=== PATIENT | female | born 1935 | race Caucasian/White ===

== ENCOUNTER 2019-05-13 14:18 | Inpatient (IN) | payer OTHER, MEDICAID ==
[~2019-05-13] VITALS: Ht 147.3 cm; Wt 49.0 kg
[~2019-05-13 14:18] MED LIST: FERL PO; LOT20 PO; METP PO; PRI20 PO; VIC PO
[2019-05-13 14:21] VITALS: Ht 147.3 cm; Wt 49.0 kg
--- NOTE | 2019-05-13 14:44 | NUR ---
PT BIBA FROM HOME S/P FALLING TWICE. PT WAS OUTSIDE AND FELL ON LEFT SIDE, GOT UP AND FELL ON RIGHT SIDE. PT DENIES HITTING HEAD OR HAVING LOC. PT STATES SHE CRAWLED INSIDE THE HOUSE AND CALLED FAMILY MEMBERS WHO THEN CALLED 911. PT CO L ELBOW PAIN AND R KNEE PAIN. PT HAS NOTED " MOSQUITO BITES TO L ELBOW, NO DEFORMITY NOTED. PT HAS SWELLING NOTED TOR KNEE AND INCREASED PAINWITH TOUCH. PT IS AWAKE AND ALERT. BREATHING EVEN AND UNLABORED. PT ABLE TO OROZCO. PT RECLINING ON GURNEY WITH NAD. WILL CONTINUE TO MONITOR
--- NOTE | 2019-05-13 14:45 | NUR ---
RECEIVED REPORT FROM TERRY. PT LYING WITH HOB UP 30 DEG. COVERED WITH BLANKET. PT AAOX4; BREATHING E/U. CALL LIGHT IS IN REACH
--- NOTE | 2019-05-13 15:00 | NUR ---
XR AT BEDSIDE
[2019-05-13 15:35] LABS: BASOPHIL % 0.1 % (0-2); PLATELET COUNT 341 x10^3mcL (130-400); RED CELL DISTRIBUTION WIDTH 13.8 % (11.5-14.5)
--- NOTE | 2019-05-13 15:45 | NUR ---
PT LYING IN COMFORTABLE POSITION WITH RLE ELEVATED SLIGHTLY. GRANDDAUGHTER AT BEDSIDE.
[2019-05-13 15:46] LABS: CALCIUM 9.2 mg/dL (8.5-10.1); CARBON DIOXIDE 23.7 mmol/L (21-32); CHLORIDE SERUM 104 mmol/L (98-107); CREATININE SERUM 0.9 mg/dL (0.6-1.0); GLUCOSE SERUM 104 mg/dL (74-106); POTASSIUM SERUM 3.9 mmol/L (3.5-5.1); SODIUM SERUM 143 mmol/L (136-145)
[2019-05-13 15:49] LABS: ALBUMIN 3.5 g/dL (3.4-5.0); ALKALINE PHOSPHATASE 73 U/L (46-116); ALT/SGPT 21 U/L (14-59); AST/SGOT 16 U/L (15-37); BILIRUBIN TOTAL 0.5 mg/dL (0.20-1.00); TOTAL PROTEIN, SERUM 6.9 g/dL (6.4-8.2)
--- NOTE | 2019-05-13 16:30 | NUR ---
PT SLEEPING. BREATHING E/U
[2019-05-13] MEDS ORDERED: CYMBALTA30 M1 PO (17:45)
--- NOTE | 2019-05-13 17:46 | NUR ---
PT REPORTS FEELING COMFORTABLE
--- NOTE | 2019-05-13 17:47 | NUR ---
CALLED [phone] FOR REPORT, NO ANS AT THIS TIME
--- NOTE | 2019-05-13 18:23 | NUR ---
REPORT GIVEN TO ANTONIO ESCOBAR
--- NOTE | 2019-05-13 18:28 | NUR ---
PT RETURND VIA GURNEY FROM CT
--- NOTE | 2019-05-13 18:35 | NUR ---
RECEIVED PT VIA GUERNEY FROM E/D, ACCOMPANIED BY TRANSPORTER AND PT'S GRANDDAUGHTER. PT A/A/O X 4, CALM, COOPERATIVE; [place]. DENIES CHEST PAIN OR DISCOMFORT AT THIS TIME. MARGAUX RADIAL PULSES AND RIGHT PEDAL PULSES PRESENT, LEFT PEDAL PULSE WEAK, NO EDEMA, CAP REFILL < 3 SECS, SCD BY BEDSIDE. NO ACUTE RESPIRATORY DISTRESS NOTED. GENERALIZED WEAKNESS W/ LEFT-SIDED DEFICITS, R TIBIAL TUBEROSITY FX W/ SPLINT TO RLE, FALL RISK PROTOCOL IN PLACE. LALM FOR SKIN MANAGEMENT, NOTED MOSQUITO BITES TO LEFT ELBOW. IV SITE RH 22G, CDI. ORIENTED PT AND GRANDDAUGHTER TO ROOM, BED CONTROLS, CALL LIGHT SYSTEM. SIDE RAILS UP X 2, BED IN LOW POSITION. WILL ENDORSE TO LUZ ALVAREZ.
--- NOTE | 2019-05-13 18:59 | NUR ---
RECEIVED PATIENT IN ER WITH A TIBIAL FRATURE TO THE RIGHT LEG. IMMOBILIZER IN PLACE AND THE PULSES NOTED PALPABLE BUT PER RN AT BEDSIDE IS WEAKER TO THE LEFT THAN THE RIGHT. PATIENT IS TALKATIVE BUT FORGETFUL. GRANDDAUGHTERS AT BEDSIDE AND SUPPORTIVE WITH CARE AND FILLING IN THE GAPS OF HER MEMORY. WILL ENDORSE TO THE NEXT SHIFT.
[2019-05-13 19:20] VITALS: BP 165/69
--- NOTE | 2019-05-13 19:25 | NUR ---
RECEIVED PT RESTING IN BED, SUPPORTIVE FAMILY AT BEDSIDE. AOX4, DENIES CHOW/DIZZINESS. PT FORGETFUL AT TIMES, [place] BILAT. MEDSURG PT, DENIES CP. PT S/P MECHANICAL FALL AT HOME, PT RLE IN IMMOBILIZER.RT LE XRAY SHOWING AVULSION FX OF TIBIAL TUBEROSITY. DR. LINTON CONSULTED. UPON ASSESSMENT OF SKIN, RLE NONPITTING EDEMA, LARGE LUMP BELOW KNEE CAP WITH THE APPEARANCE SIMILAR TO HER ACTUAL KNEE. PT WITH SMALL, ROUND SKIN TEAR. FACE BURLER. DENIES PAIN. PT REPORTS COMFORT WITH THE IMMOBILIZER SNUG FIT. PULSES PALPABLE BLE, SLIGHTLY WEAKER PULSE ON LLE. DENIES PAIN AT THIS TIME. PT DENIES SOB, ON RA, DENIES ABD PAIN. INFORMED PT WE NEED URINE SPECIMEN, WILL ATTEMPT WITH BEDPAN. GENERALIZED WEAKNESS, ON LALM, SKIN INTACT. IV SITE TO THE FT HAND, NS @ 50ML/HR. NO REDNESS, SWELLING OR PAIN NOTED. ALL COMFORT AND SAFETY MEASURES PROVIDED FOR, CALL LIGHT WITHIN REACH, BED IN LOWEST POSITION, WILL CONTINUE TO MONITOR.
--- NOTE | 2019-05-13 19:52 | NUR ---
GAVE REPORT TO ON COMING STAFF. PATIENT WITH GRANDDAUGHTER AT BEDSIDE AND HAVING CAROTID US AT THIS TIME.
[2019-05-13 22:19] VITALS: BP 159/66
--- NOTE | 2019-05-13 22:30 | NUR ---
RECHECKED PT BP= 145/63, HR 65, INFORMED RESIDENT LUX D/T PT ONLY HAS HYDRALAZINE AVAILABLE, PER RESIDENT LUX, THIS BP IS ACCEPTABLE AT THIS TIME. PT DENIES CHOW/DIZZINESS/LIGHTHEADEDNESS. PT AGREEABLE WITH PLAN OF CARE AT THIS TIME, DENIES PAIN IN AFFECT LE. IMMOBILIZER REMAINS IN PLACE. ALL COMFORT AND SAFETY MEASURES PROVIDED FOR, CALL LIGHT WITHIN REACH, BED IN LOWEST POSITION, WILL CONTINUE TO MONITOR.
[2019-05-13 22:45] VITALS: BP 145/63
--- NOTE | 2019-05-14 05:00 | NUR ---
PT RESTED IN INTERVALS DURING SHIFT, NO ACUTE CHANGES OCCURRING OVERNIGHT. PT BARBARA BARAHONA COOPERATIVE WITH PLAN OF CARE, PT REPORTS PAIN UNDER CONTROL DURING SHIFT. IV SITE REMAINS PATENT, NO REDNESS, SWELLING OR PAIN NOTED. CALL LIGHT WITHIN REACH, BED IN LOWEST POSITION, WILL CONTINUE TO MONITOR.
[2019-05-14 05:15] VITALS: BP 136/52
[2019-05-14 06:19] LABS: BASOPHIL % 0.4 % (0-2); PLATELET COUNT 299 x10^3mcL (130-400); RED CELL DISTRIBUTION WIDTH 13.9 % (11.5-14.5)
--- NOTE | 2019-05-14 06:36 | NUR ---
SPOKE TO PT DAUGHTER (RICARDO CATALAN: [phone]) AND UPDATED HER ON PLAN FOR SURGERY (RT ORIF WITH CANNULATED SCREWS AT TIBIA), PT WAS BRIEF BY DR. ROYER KELLEY TO SIGN CONSENT FORMS. PER DAUGHTER, PT IS NOT TO SIGN PAPERWORK UNTIL ANOTHER FAMILY MEMBER IS AT BEDSIDE TO ENSURE PT SAFETY. PER PT DAUGHTER, WILL BE IN TO SEE PATIENT AT 8-8:30AM TO BE PRESENT DURING CONSULTATION. WILL ENDORSE TO DAYSHIFT.
[2019-05-14 07:06] LABS: CALCIUM 8.7 mg/dL (8.5-10.1); CARBON DIOXIDE 24.1 mmol/L (21-32); CHLORIDE SERUM 111 mmol/L (98-107); CREATININE SERUM 1.2 mg/dL (0.6-1.0); GLUCOSE SERUM 92 mg/dL (74-106); PHOSPHOROUS 3.6 mg/dL (2.5-4.9); POTASSIUM SERUM 4.2 mmol/L (3.5-5.1); SODIUM SERUM 144 mmol/L (136-145)
--- NOTE | 2019-05-14 07:30 | NUR ---
RECEIVED PT FROM OFFICE ASSISTANT. PT AWAKE, ALERT A/OX4. PT ON ROOM AIR WITH NO RESP DISTRESS NOTED. PT DENIES HEADACHE, CHEST PAIN OR ANY PAIN AT THIS TIME. IV ACCESS RH 22G SALINE LOCKED. PERIPHERAL PULSES PALPABLE. NON PITTING EDEMA TO RIGHT KNEE. ACTIVE BS NOTED. NO ISSUES WITH ELIMINATION AT THIS TIME. PT NOTED TO HAVE GENERALIZED WEAKNESS. PT HAS FRACTURE TO RIGHT KNEE WITH NO PAIN NOTED. PT HAS BRACE TO KNEE. SAFETY MEASURES IN PLACE, BED LOW AND LOCKED. CALL LIGHT WITHIN REACH.
[2019-05-14 09:39] VITALS: BP 147/56
--- NOTE | 2019-05-14 10:30 | NUR ---
PT GRANDDAUGHTER AT BEDSIDE. CONSENT SIGNED. PT RIGHT LEG MARKED FOR SURGERY. PT WITH NO ACUTE DISTRESS OR DISCOMFORT AT THIS TIME. CHG WIPES BATH GIVEN.
--- NOTE | 2019-05-14 11:37 | NUR ---
PT TAKEN TO OR BY BED. NO ACUTE DISTRESS NOTED AT THIS TIME.
--- NOTE | 2019-05-14 14:35 | NUR ---
PT BACK FROM SURGERY. AWAKE, ALERT. VSS BP HIGH 172/57 WILL MEDICATE PRN. PT NOTED TO HAVE NAUSEA AND VOMITING. WILL MEDICATE.
--- NOTE | 2019-05-14 14:57 | NUR ---
ZOFRAN ADMINISTERED ORDERED PRN (SEE EMAR). HYDRALAZINE ADMINISTERED ORDERED PRN FOR VOMITING (SEE EMAR) WILL CONT TO MONITOR.
[2019-05-14 15:18] VITALS: BP 125/62
--- NOTE | 2019-05-14 15:25 | NUR ---
PHYSICAL THERAPY NOTE TO BE SEEN FOR PHYSICAL THERAPY EVAL TOMORROW. DR LINTON INDICATED SERVICE DATE FOR 05/15/19
[2019-05-14 15:43] VITALS: BP 143/61
[2019-05-14 17:41] VITALS: BP 141/64
--- NOTE | 2019-05-14 18:52 | NUR ---
PT STABLE AT THIS TIME. PT DENIES ANY PAIN. FAMILY AT BEDSIDE. ALL NEEDS MET THROUGHOUT SHIFT. WILL CONTINUE TO MONITOR AND ENDORSE CARE TO SHELL MACHINE OPERATOR.
[2019-05-14 19:50] VITALS: BP 131/54; BP 151/63
--- NOTE | 2019-05-14 20:02 | NUR ---
PATIENT RECEIVED AWAKE, ALERT, ORIENTED X4 IN BED. FAMILY MEMBER AT THE BEDSIDE. RESPIRATION EVEN AND UNLABORED, ON ROOM AIR. ONGOING 0.9% NS AT 50 CC/HR INFUSING WELL AT THE RIGHT HAND. VERBALIZED HER PAIN IS COMING BACK. S/P RIGHT TIBIA ORIF TODAY. RIGHT KNEE IMMOBILIZER IN PLACED. VOIDING FREELY, USES BEDPAN. SURGICAL INCISION TO RIGHT KNEE COVERED WITH DRESSING, MOSQUITO BITES TO LEFT ELBOW. HARD OF HEARING ON RIGHT EAR, BLURRY VISION ON RIGHT EYE. WILL CONTINUE TO MONITOR.
--- NOTE | 2019-05-14 21:03 | NUR ---
PATIENT COMPLAINED OF RIGHT KNEE PAIN, PS 8/10. MEDICATED WITH NORCO 7.5/325 MG PO ORDERED. WILL CONTINUE TO MONITOR.
[2019-05-15] VITALS (7 sets, daily range): BP systolic 121–168; BP diastolic 49–69
[2019-05-15 06:41] LABS: BASOPHIL % 0.4 % (0-2); PLATELET COUNT 291 x10^3mcL (130-400); RED CELL DISTRIBUTION WIDTH 13.6 % (11.5-14.5)
--- NOTE | 2019-05-15 06:47 | NUR ---
PATIENT RESTING IN BED, RESPIRATION EVEN AND UNLABORED. COMPLAINED OF RIGHT KNEE PAIN, 5/10. MEDICATED WITH NORCO 7.5/325 MG PO ORDERED. RIGHT IMMOBILIZER IN PLACED. IV SITE NO SIGN OF INFILTRATION. ASSISTED WITH NEEDS. SAFETY OBSERVED. PLACED CALL LIGHT WITHIN REACH AT ALL TIMES.
[2019-05-15 07:09] LABS: CALCIUM 8.3 mg/dL (8.5-10.1); CARBON DIOXIDE 23.7 mmol/L (21-32); CHLORIDE SERUM 108 mmol/L (98-107); CREATININE SERUM 1.1 mg/dL (0.6-1.0); GLUCOSE SERUM 98 mg/dL (74-106); MAGNESIUM 1.9 mg/dL (1.8-2.4); PHOSPHOROUS 3.1 mg/dL (2.5-4.9); POTASSIUM SERUM 4.3 mmol/L (3.5-5.1); SODIUM SERUM 141 mmol/L (136-145)
--- NOTE | 2019-05-15 07:30 | NUR ---
RECEIVED PT FROM CLINICAL STAFF EDUCATOR RN. Devonte/AMIE. MED SURG. RESPIRATIONS EQUAL AND UNLABORED ON RA. DENIES SOB. KNEE IMMOBILIZER IN PLACE TO RIGHT KNEE. NO REDNESS OR SWELLING NOTED. PT DENIES ANY PRESSURE TO RIGHT KNEE. PT DENIES ANY PAIN SINCE RECEIVING PAIN MEDICATION THIS AM. IV PATENT AND INFUSING. NO REDNESS OR SWELLING NOTED. PT SAT UP TO EAT BREAKFAST. WILL CONTINUE TO MONITOR. CALL LIGHT IN REACH. BED IN LOWEST POSITION.
--- NOTE | 2019-05-15 08:56 | NUR ---
PT SITITNG UP IN BED. NO ACUTE RESP DISTRESS NOTED ON RA. PT C/O FEELING DIZZY AND NAUSEATED. PT STATES "WHEN I TRIED TO EAT BREAKFAST THIS MORNING. I STARTED TO FEEL NAUSEATED AND DIZZY" PT STATES "THIS SOMETIMES HAPPENS WHEN MY BLOOD PRESSURE IS HIGH. BP CHECKED WAS 167/58. GIVEN PO MEDS. TOLERATED WELL. PT GIVEN ZOFRAN FOR NAUSEA. FLORENCIA WAYBILL CLERK AT BEDSIDE. FAMILY IS AGREEABLE TO SNF FOR PHYSICAL THERAPY. WILL CONTINUE TO MONITOR. CALL LIGHT IN REACH. BED IN LOWEST POSITTION.
--- NOTE | 2019-05-15 09:49 | NUR ---
SPOKE WITH REGINA PHYSICAL THERAPIST. PER REGINA PT WAS POSITIONED SITTING IN CHAIR. REGINA STATES CALLED PHYSICAL THERAPY WHEN PT IS READY TO MOVE BACK TO BED.
--- NOTE | 2019-05-15 12:16 | NUR ---
PT C/O DIZZINESS. PT IN BED RESTING. NO ACUTE RESP DISTRESS NOTED ON RA. BLOOD PRESSURE RECHECKED WAS 173/62 IN RIGHT ARM AND 168/69 IN LEFT ARM. PT HAS HYDRALAZINE IVP PRN. PER PHARMACY PT NEEDS TO BE ON TELEMETRY IN ORDER FOR THIS MEDICATION TO BE GIVEN. CALLED [employer] NEWS VIDEOGRAPHER. PER [employer] VIDEOGRAPHER WILL PLACE PT ON TELE. WILL CONTINUE TO MONITOR. CALL LIGHT IN REACH. BED IN LOWEST POSITION.
--- NOTE | 2019-05-15 12:36 | NUR ---
P.T. NOTES UNABLE TO SEE PATIENT FOR SECOND P.T. TREAT DUE TO C/O DIZZINESS AND NAUSEA, ALSO PATIENT HAS BEEN HAVING HIGH BP PER NURSING.
--- NOTE | 2019-05-15 13:02 | NUR ---
PT SITTING UP IN BED. NO ACUTE RESP DISTRESS NOTED ON RA. TELE# 8 PLACED ON PT. PT GIVEN HYDRALAZINE IVP FOR ELEVATED BP. PT TOLERATED WELL. GIVEN PO MEDS. TOLERATED WELL. PT USED BEDPAN. REPOSITIONED LAYING IN BED. WILL CONTINUE TO MONITOR. CALL LIGHT IN REACH. BED IN LOWEST POSITION.
--- NOTE | 2019-05-15 13:48 | NUR ---
PT SITTING UP IN BED SLEEPING. NO ACUTE RESP DISTRESS NOTED ON RA. PT DENIES ANY SOB. BP RECHECKED AFTER HYDRALAZINE WAS GIVEN WAS 141/58 MAP 68. PT DENIES ANY DIZZINESS OR NAUSEA AT THIS TIME. PT C/O CHILLS ORAL TEMP WAS CHECKED WAS 98.2. PT STATES "I WANT TO TRY TO EAT LATER. I JUST WANT TO REST RIGHT NOW" WILL CONTINUE TO MONITOR. CALL LIGHT IN REACH. BED IN LOWEST POSITION.
--- NOTE | 2019-05-15 15:10 | NUR ---
PT IN BED RESTING. NO ACUTE RESP DISTRESS NOTED ON RA. PT DENIES ANY DIZZINESS OR NAUSEA AT THIS TIME. PT STATES "I HAD SOME JELLO AND I FELT OKAY BUT I WANT TO WAIT A LITTLE BIT BEFORE EATING ANYMORE" PT DENIES ANY PAIN TO RT KNEE. RT KNEE IMMOBILIZER IN PLACE. SPOKE WITH DAUGHTER DIEGO, GIVEN UPDATES ON PT. WILL CONTINUE TO MONITOR. CALL LIGHT IN REACH. BED IN LOWEST POSITION.
--- NOTE | 2019-05-15 16:03 | NUR ---
PT SITTING UP IN BED. PT STATES SHE FEELS NUMBNESS TO RLE. PT STATES HER IMMOBILIZER FEELS TIGHT. READJUSTED KNEE IMMOBILIZER. PT STATES IT FEELS BETTER. SENSATION TO BLE EQUAL, PT DENIES ANY PAIN AT THIS TIME. WILL CONTINUE TO MONITOR. CALL LIGHT IN REACH. BED IN LOWEST POSITION.
--- NOTE | 2019-05-15 17:49 | NUR ---
PT SITTING UP IN BED. NO ACUTE RESP DISTRESS NOTED ON RA. PT REPOSITIONED WITH HOB ELEVATED TO EAT DINNER. PT EATING AND TOLERATING WELL. PT DENIES ANY NAUSEA OR ANY DIZZINESS. PT STATES "I DON'T HAVE ANY PAIN TO MY KNEE. SOMETIMES IT THROBS BUT ITS TOLERABLE." GIVEN PO MEDS. TOLERATES WELL. IV ANTIBIOTICS PATENT AND INFUSING. NO REDNESS OR SWELLING NOTED. WILL CONTINUE TO MONITOR. CALL LIGHT IN REACH. BED IN LOWEST POSITION.
--- NOTE | 2019-05-15 20:16 | NUR ---
PATIENT RECEIVED IN BED VIA BEDSIDE HANDSOFF WITH OUT GOING NURSE RAVI-LUZ, PATIENT CONVERSING WITH FAMILY MEMBER SEEMS IN GOOD SPIIRTS. NO NOTED DISTRESS NOR VERBALIZED CCONCERNS. AAOX3, FORGTEFUL AT TIMES, SPEECH CLEAR, [place] ON BOTH EARS NO VISIBLE HEARING AID NOTED.BREATHING EVEN AND UNLABORED BS CLEAR, DENIED SOB, FOUND ON ROOM AIR SAT 95-98%. DENIED CHEST PAINS, HR=76BPM, RHYTHM REGULAR, SR.NEW IV SITE INSERTED BY RESOURCE NURSE RAJIV TO RT AC SITE IS INTACT AND PATENT, TAPED SECURED. S/P RT PROXIMAL TIBIA ORIF, KNEE IMMOBILIZER IN USE, ABLE TO WIGGLE TOES, DENIED N/T SENSATION, BRISK CAP REFILL, DULL BEARABLE SURGICAL PAIN STATED BY PATIENT , RATED AT 3/10, PATIENT INFORMED BAOUT PAIN MANAGEMENT.GENERALIZED WEAKNESS,NEED ASSIST WITH ADL'S AND TURNING, NEEDS ANTICIPATED, CALL LIGHT PLACED IN REACH. AIR MATTRESS.VOIDING PER BEDPAN, DENIED PAIN UPON URINATION. SAFETY/FALL PRECAUTIONS MAINTAINED.INFORMED PATIENT AND FAMILY ABOUT POC THIS SHIFT. WILL CONTINUE TO MONITOR.
--- NOTE | 2019-05-15 21:11 | NUR ---
SCHEDULED MEDS ADMINISTERED, PATIENT INFORMED PRIOR OF EACH MEDS ACTIONS AND PURPOSES. ALL QUESTIONS ANSWERED. PLACED IN A SEMI FOWLERS POSTION DURING ADMINISTRATION.
--- NOTE | 2019-05-15 21:57 | NUR ---
PAIN RELIEF, RATED AT 2/10, COMFORTABLE THIS TIME, TURNED TO HER RT SIDE.
--- NOTE | 2019-05-16 00:03 | NUR ---
ROUNDS MADE PATIENT SLEEPING, COMFORTABLY AND QUIETLY THIS TIME, AWAKEN, PATIENT INFORMED ABOUT BEING TURNED THIS TIME TO HER LEFT SIDE. OFFERED NO COMPLAINT, STATES RLE PAIN IS AT 2 DULL AND BEARABLE. WILL CONTINUE TO MONITOR. SAFETY/FALL PRECAUTIONS MAINTAINED.
--- NOTE | 2019-05-16 03:00 | NUR ---
TURNED TO HER LEFT SIDE THIS TIME, NO COMPLAINTS.
[2019-05-16 05:21] VITALS: BP 153/60
[2019-05-16 06:28] LABS: CALCIUM 8.2 mg/dL (8.5-10.1); CHLORIDE SERUM 109 mmol/L (98-107); GLUCOSE SERUM 98 mg/dL (74-106); POTASSIUM SERUM 4.3 mmol/L (3.5-5.1); SODIUM SERUM 141 mmol/L (136-145)
--- NOTE | 2019-05-16 06:33 | NUR ---
PATIENT SLEPT GOOD AND RESTED WELL DURING THE SHIFT. WAS TURNED TO HER RT SIDE THIS TIME, NO SKIN REDNESS NOR BREAKDOWN ON BONY PROMINENCES. IV SITE TO RAC PATENT AND INTACT, TAPE SECURED. WAS MEDICATED X1 WITH NORCO AND RECEIVED RELIEF. NO COMPLAINT OF N/T SENSATION TO RLE WIGGLES TOES. SAFETY/FALL PRECAUTIONS MAINTAINED. WILL ENDORSE CONTINUITY OF CARE TO INCOMING NURSE.
[2019-05-16 06:49] LABS: BASOPHIL % 0.4 % (0-2); PLATELET COUNT 288 x10^3mcL (130-400); RED CELL DISTRIBUTION WIDTH 13.9 % (11.5-14.5)
--- NOTE | 2019-05-16 07:20 | NUR ---
RECEIVED PATIENT AWAKE/ALERT IN BED, DENIES PAIN AT THIS TIME. TELE #8 SR HR 75 NOTED; RT KNEE W/ IMMOBILIZER IN PLACE. IV TO RAC INTACT AND INFUSING WELL. CONT TO MONITOR
--- NOTE | 2019-05-16 07:24 | NUR ---
BEDSIDE HANDS OFF AND INTRODUCTION PERFORMED WITH INCOMING NURSE KODI-LUZ.
[2019-05-16 08:03] VITALS: BP 135/54
--- NOTE | 2019-05-16 08:08 | NUR ---
TOOK PATIENT OFF BEDPAN, VOIDED 250ML YELLOW URINE; REOSITION UP IN BED FOR BREAKFAST, DENIES PAIN AT THIS TIME. SETUP BREAKFAST TRAY FOR PATIENT. CALL LIGHT WITHIN REACH.
--- NOTE | 2019-05-16 09:14 | NUR ---
ASSIST PATIENT OFF BEDPAN, VOIDED 150ML YELLOW URINE. PATIENT ABLE TO REPOSITION SELF UP IN BED, ALL DUE PO MEDS AND TOLERATED WELL. HEPARIN SQ INJECTED TO RT ABDOMEN. NEEDS MET. PATIENT WATCHING TV AT THIS TIME. IVF DISCONTINUE PER EMERGENCY ROOM REGISTERED NURSE FLORENCIA. IV SITE HL. CALL LIGHT WITHIN REACH, PT REQUEST TO KEEP BEDPAN AT HER SIDE. BED LOW IN POSITION.
[2019-05-16 12:39] VITALS: BP 132/70
--- NOTE | 2019-05-16 13:08 | NUR ---
PATIENT SAT UP IN BED NO COMPLAINS, PT REPORT FINISH EATING, ATE 80% OF HER LUNCH, FERROUS SULFATE PO GIVEN. NO PAIN AT THIS TIME. NEEDS MET. RLE ELEVATED ON PILLOW. CALL LIGHT WITHIN REACH.
--- NOTE | 2019-05-16 14:53 | NUR ---
PATIENT RESTING IN BED AWAKE/ALERT NO DISTRESS NOTED, FAMILY MEMBERS AT BEDSIDE, WEAN O2 DECREASE TO 1LNC; WILL RECHECK. DECREASE IVF TO 60ML/HR. FLARING MACHINE OPERATOR REPORT POSITION PT AND PATIENT USES URINAL, NOT INCONT THIS TIME. NEEDS MET. CONT TO MONITOR.
--- NOTE | 2019-05-16 14:59 | NUR ---
PATIENT RESTING IN BED, NO COMPLAINS. CLINICAL DATA ASSISTANT AT BEDSIDE TAKING VITALS. INCONT CARE PROVIDED. REPOSITIONED. RLE ELEVATED. CALL LIGHT WITHIN REACH.
[2019-05-16 16:15] VITALS: BP 104/81
--- NOTE | 2019-05-16 17:08 | NUR ---
INCONT CARE PROVIDED, REPOSITIONED. FERROUS SULFATE PO GIVEN. NEEDS MET. CALL LIGHT WITHIN REACH.
--- NOTE | 2019-05-16 18:37 | NUR ---
PATIENT'D GRAND-DTR CALL FOR UPDATE, TRANSFER PHONE TO PATIENT, PT SITTING UP IN BED WATCHING TV. CALL WITHIN REACH.
--- NOTE | 2019-05-16 19:12 | NUR ---
PT RECEIVED A/O X3 WITH EPISODES OF FORGETFULNESS, ABLE TO MAKE NEEDS KNOWN. TELE #8, DENIES ANY CP/PRESSURE. PULSES PALPABLE, EDEMA TO RLE. BREATHING IS EVEN AND UNLABORED ON RA, DENIES SOB, NO RESP DISTRESS NOTED. ABD SOFT AND NONDISTENDED, DENIES N/V. VOIDS FREELY USING BED CRANE, BUT MAY HAVE EPISODES OF URINARY INCONTINENCE. MILD GENERALIZED WEAKNESS, PT ABLE TO REPOSITION WITH MINIMAL ASSIST, ON AIR MATTRESS. S/P ORIF TO RT TIBIAL ON 05/14/19. DRSG TO RT KNEE IN PLACE, CDI WITH KNEE IMMOBILIZER. PT DENIES HAVING ANY PAIN AT THIS TIME. IVF INFUSING WELL TO RAC, PATENT AND INTACT, SITE WNL. GRANDDAUGHTER AT BEDSIDE. NO ACUTE DISTRESS NOTED. BED ALARM ON. CALL LIGHT WITHIN REACH. WILL CONT TO MONITOR.
[2019-05-16 20:19] VITALS: BP 174/64
--- NOTE | 2019-05-16 21:22 | NUR ---
PT INCONTINENT OF URINE, PT CLEANED AND REPOSITION, HYDRAGUARD PLACED. PT IN NO ACUTE DISTRESS. CALL LIGHT WITHIN REACH. WILL CONT TO MONITOR.
--- NOTE | 2019-05-16 22:40 | NUR ---
PT IN NO ACUTE DISTRESS. CONTINUITY OF CARE ENDORSED TO EMA ESCOBAR. ALL QUESTIONS AND CONCERNS ADDRESSED.
--- NOTE | 2019-05-16 22:41 | NUR ---
ASSUMED CARE OF THIS PATIENT THIS TIME. PATIENT IS RESTING COMFORTABLY THIS TIME, AWAKEN WHEN NAME CALLED, DENIED PAIN. IV SITE TO RAC PATENT AND INTACT TAPE SECURED.SAFETY AND FALL PRECAUTIONS MAINTAINED. WILL CONTINUE TO MONITOR.
[2019-05-17 05:51] VITALS: BP 160/64
--- NOTE | 2019-05-17 06:43 | NUR ---
PATIENT HAD A RESTFUL AND QUIET COMFORTABLE NIGHT, WAS INCONTINENT OF UA , CLEANED AND KEPT DRY, BREAKDOWN NOTED. COMPLAINED OF DULL TOLERABLE PAIN RATED AT 2/10 DURING THE SHIFT. IV SITE NO SIGN OF INFILTRATION. SAFETY/FALL PRECAUTION MAINTAINED. WILL ENDORSE CONTINUITY OF CARE TO INCOMING NURSE.
--- NOTE | 2019-05-17 07:27 | NUR ---
PHYSICAL THERAPY DAILY NOTES CO-SIGN All documentation done by the Ostomy Nurse for 05/15/19 has been reviewed. I agree with the documentation. Reviewed/Co-Signed by: Silvia Phan PT Documentation Done by:MOSES BELTRAN PTA
--- NOTE | 2019-05-17 07:27 | NUR ---
BEDSIDE HANDS OFF AND INTRODUCTION PERFORMED WITH INCOMING NURSE HETAL.
--- NOTE | 2019-05-17 08:00 | NUR ---
SHIFT ASSESSMENT DONE. PATIENT A/A/OX3; BUT FORGETFULNESS. TELE#8; SR; HR = 73. DENIED CHEST PAIN. NO RESP DISTRESS ON RA. TOLERATED 2G NA DIET BREAKFAST. VOID VIA BED CRANE, INCONT AT TIMES. IVF OF NS 50CC/HR. DRSG TO RT KNEE D/C/I. KNEE IMMOBLIZER IN PLACE. PEDAL PULSES STRONG [place]. TRACE EDEMA TO RLE NOTED. DENIED PAIN. CALL LIGHT IN REACH.
[2019-05-17 09:28] VITALS: BP 169/69
[2019-05-17] MEDS ORDERED: NORCO1 TA2 PO (09:36)
--- NOTE | 2019-05-17 13:00 | NUR ---
HAD BM X1 AFTER DULCOLAX SUPP GIVEN. AMBULATED W/ PHYSICAL THERAPIST.
[2019-05-17 13:37] VITALS: BP 154/56
--- NOTE | 2019-05-17 14:30 | NUR ---
DR. LINTON CAME TO SEE PATIENT. DRSG CHANGED BY DR. LINTON. INCISION SITE CLEAN, NO DRAIANGE. JOSE INTACT. PHOTO TAKEN AND FILED.
[2019-05-17 15:49] VITALS: BP 154/56
--- NOTE | 2019-05-17 16:40 | NUR ---
PATIENT WENT TO [facility] VIA MEDICAL TRANSPORTATION.
--- NOTE | 2019-05-17 16:40 | NUR ---
D/C TO [facility] SNF PER ORDER. IV D/C'D. IMMOBOLIZER IN PLACE. REPORT GIVEN TO TERRY, CHARGE NURSE, [facility], DENIED PAIN. CONDITION STABLE.
== END 2019-05-17 16:40 | DRG 493 ==
LOC: ED 14:18 → DU 17:09 → MU 17:09 → DU 05-15 20:25 → MU 05-17 09:10
PROVIDERS: Specialist; ADMIT Internal Medicine
PROC: 0QSG04Z Reposition Right Tibia with Internal Fixation Device, Open Approach (ICD-10-PCS; principal; 2019-05-17)
PROC: 0LMQ0ZZ Reattachment of Right Knee Tendon, Open Approach (ICD-10-PCS; 2019-05-17)
DX: S82.151A Displaced fracture of right tibial tuberosity, initial encounter for closed fracture (principal); S76.121A Laceration of right quadriceps muscle, fascia and tendon, initial encounter; I69.398 Other sequelae of cerebral infarction; R42 Dizziness and giddiness; G30.9 Alzheimer's disease, unspecified; F02.80 Dementia in other diseases classified elsewhere, unspecified severity, without behavioral disturbance, psychotic disturbance, mood disturbance, and anxiety; I10 Essential (primary) hypertension; Z68.22 Body mass index [BMI] 22.0-22.9, adult; W01.0XXA Fall on same level from slipping, tripping and stumbling without subsequent striking against object, initial encounter; Y92.017 Garden or yard in single-family (private) house as the place of occurrence of the external cause
CPT/HCPCS: 97116-GP; 97530-GP; C1713; G0378; J0360; J0690; J1644; J1885; J2175; J2250; J2405; J2704; J3010; J3490; J7030; J7120; Q0092

== ENCOUNTER → 2019-06-24 | Outpatient (CLI) | payer OTHER, MEDICAID ==
[~2019-06-24] MED LIST changes: +CYMBALTA30 M1 PO; +NORCO1 TA2 PO
== END | disposition home or self-care (01) ==
LOC: RD 14:28
DX: S82.102A Unspecified fracture of upper end of left tibia, initial encounter for closed fracture (principal); X58.XXXA Exposure to other specified factors, initial encounter; Y92.9 Unspecified place or not applicable